=== PATIENT | female | born 1985 | race Two or more races ===

== ENCOUNTER 2024-06-24 12:27 | Emergency (ER) | payer MEDICAID ==
[~2024-06-24] VITALS: Ht 157.5 cm; Wt 74.8 kg
[2024-06-24] MEDS ORDERED: IBUPROFEN 800 MG TABLET ONE (13:14)
[2024-06-24] MEDS: IBUPROFEN 800 MG TABLET PO ONE (13:16)
[2024-06-24] MEDS ORDERED: IBUP-1957 PO (14:54)
[2024-06-24 14:56] VITALS: BP 130/80; O2SAT 98
== END 2024-06-24 15:01 | disposition home or self-care (01) ==
LOC: ER 12:27
DX: S16.1XXA Strain of muscle, fascia and tendon at neck level, initial encounter (principal); S39.012A Strain of muscle, fascia and tendon of lower back, initial encounter; S13.4XXA Sprain of ligaments of cervical spine, initial encounter; M47.816 Spondylosis without myelopathy or radiculopathy, lumbar region; Z79.899 Other long term (current) drug therapy; V89.2XXA Person injured in unspecified motor-vehicle accident, traffic, initial encounter; Y93.89 Activity, other specified; Y92.89 Other specified places as the place of occurrence of the external cause; Y99.8 Other external cause status
CPT/HCPCS: 72125; 72131; A4606; A4663